=== PATIENT | female | born 1985 | race Caucasian/White ===

== ENCOUNTER 2016-11-03 23:02 | Emergency (ER) | payer OTHER ==
[~2016-11-03] VITALS: Ht 167.6 cm; Wt 104.3 kg
[~2016-11-03 23:02] MED LIST: COLACE100 MG PO; INDOMETHACIN50 M1 PO; MOTRIN 600 MG600 MG PO; PERCOCET 325 MG1 TA2 PO; TRANS SCOPE PAT1 PAT TOP
--- NOTE | 2016-11-03 23:57 | ED GENERAL ADULT ---
History of Present Illness General Chief Complaint: General Adult Stated Complaint: EPIGASTRIC DISCOMFORT, S/P SWOLLOWING MEAT. Source: patient Exam Limitations: no limitations Vital Signs & Intake/Output Vital Signs & Intake/Output Vital Signs Date Time Temp Pulse Resp B/P Pulse O2 O2 Flow FiO2 Ox Delivery Rate 11/04 0113 98.0 98 18 125/80 99 Room Air 11/04 0006 95 11/03 2338 98.7 103 16 137/87 99 Room Air ED Intake and Output 11/04 0000 11/03 1200 Intake Total Output Total Balance Patient 230 lb Weight Allergies Coded Allergies: NO KNOWN ALLERGIES (05/05/16) Reconcile Medications Docusate Sodium (Colace) 100 MG SGL 1 CAP PO BID PRN CONSTIPATION STOOL SOFTENER AVAILABLE OVER THE COUNTER. TAKE DIRECTED. Ibuprofen (Motrin 600 MG Tab) 600 MG TAB 1 TAB PO TID PRN PAIN CONTROL AVAILABLE OVER THE COUNTER. YOU MAY TAKE IN COMBINATION OR ALTERNATIVELY TO PERCOCET. Indomethacin 50 MG CAPSULE 1 CAP PO TID PRN PAIN with food OXYCODONE HCL/ACETAMINOPHEN (Percocet 5-325 MG Tablet) 325 MG/5 MG TAB 1-2 TAB PO Q4-6 PRN PRN PAIN DO NOT COMBINE WITH TYLENOL Scopolamine Hydrobromide (Transderm-Scop) 1 PAT PAT 1 PATCH TOP Q72 PRN POST- OP NAUSEA REMOVE PATCH TOMORROW, 07/26/15 FROM BEHIND YOUR RIGHT EAR. REMOVE CAREFULLY AND WASH HANDS AND AREA AFTER REMOVAL. Triage Note: 31YO FEMALE TO TRIAGE W/CO THROAT PAIN SP SWALLOWING A LG PIECE OF MEAT WED DANIELLE. STATES SHE ATE AND DRANK OK TODAY BUT HAS PAIN. Triage Nurses Notes Reviewed? yes Onset: Gradual Duration: day(s): Timing: no prior history Injury Environment: home Severity: mild Severity Numbers: 4 No Modifying Factors: none : No Patient currently breastfeeds: No HPI: Patient is a 31-year-old female with history of asthma presenting to the emergency department with chief complaint of wheezing after episode of choking on a large piece of food yesterday. Patient reports that she was eating a piece of boneless meAT and she felt like it was going down the wrong pipe. Denies abdominal pain. No nausea or vomiting. She's been able to drink all day today without difficulty. No fevers or chills. She's been using her albuterol inhaler with little relief. Denies coughing. No recent upper respiratory congestion. (SOURAV CLIFTON) Past History Travel History Traveled to [place] past 21 day No Medical History Any Pertinent Medical History? see below for history Neurological: NONE EENT: NONE Cardiovascular: NONE Respiratory: NONE Gastrointestinal: NONE Hepatic: NONE Renal: NONE Musculoskeletal: NONE Psychiatric: NONE Endocrine: NONE Blood Disorders: NONE Cancer(s): NONE PERFORMANCE CONSULTANT/Reproductive: NONE History of MRSA: No History of VRE: No History of CDIFF: No Surgical History Surgical History: N Psychosocial History Who do you live with Family Services at Home None What is your primary language Monegasque Tobacco Use: Never used Family History Hx Contributory? No (SOURAV CLIFTON) Review of Systems Review of Systems Constitutional: Reports: no symptoms. Comments Review of systems: See HPI, All other systems negative. Constitutional, no chills fever or weight loss HEENT: No visual changes no sore throat no congestion Cardiovascular: No chest pain ,palpitation Skin, no jaundice no rashes Respiratory: No dyspnea cough sputum or hemoptysis GI: No nausea no vomiting Muscle skeletal: no back pain, no neck pain, Neurologic: No numbness no confusion Psych: No stress anxiety Immunology: No splenectomy or history of AIDS (SOURAV CLIFTON) Physical Exam Physical Exam General Appearance: well developed/nourished, no apparent distress, alert, awake , comfortable Comments: Well-developed well-nourished person in no acute distress HEENT: Pupils equally round and reactive to light and accommodation. Nose is atraumatic.Pharynx normal. No swelling or edema. No foreign body appreciated Neck: Normal inspection Back: Nontender Cardiovascular: Regular rate and rhythms no murmurs rubs or gallops, normal JVP Respiratory: Chest nontender. No respiratory distress.diffuse wheezing to auscultation bilaterally Abdomen: Soft, nontender nondistended, no appreciable organomegaly. Normal bowel sounds. No ascites Extremity: No edema Neuro: Alert oriented x3 Skin: No appreciable rash on exposed skin, skin is warm and dry. Psych: Mood and affect is normal, memory and judgment is normal. Core Measures ACS in differential dx? No CVA/TIA Diagnosis: No Severe Sepsis Present: No Septic Shock Present: No (SOURAV CLIFTON) Progress Differential Diagnoses I considered the following diagnoses in my evaluation of the patient: Esophageal abrasion, esophageal stricture, aspiration pneumonia, asthma exacerbation Plan of Care: Orders Procedure Date/time Status XRY-CHEST XRAY, PA AND LATERAL 11/03 2869 Active Diagnostic Imaging: Viewed by Me: Radiology Read. Discussed w/RAD: Radiology Read. CXR Impression: no acute abnormality, no infiltrates, normal size heart, normal mediastinum Initial ED EKG: none Comments: Patient moving better after DuoNeb treatment. Patient will fracture develop pneumonia. Patient was informed of x-ray results. All questions answered. She'll follow up with PCP. Patient nontoxic. (SOURAV CLIFTON) Departure Departure Time of Disposition: 58 Disposition: HOME OR SELF CARE Condition: Stable Clinical Impression Primary Impression: Wheezing Referrals: SHEREE HUGGINS APRN (PCP/Family) Additional Instructions: Follow-up with a primary care physician, continue using albuterol inhaler as previously directed. Return for worsening symptoms or concerns. Departure Forms: Customer Survey General Discharge Information (SOURAV CLIFTON) PA/WAITER/WAITRESS DINING CAR Co-Sign Statement Statement: ED Attending supervision documentation- [] I saw and evaluated the patient. I have also reviewed all the pertinent lab results and diagnostic results. I agree with the findings and the plan of care as documented in the PA's/WAITER/WAITRESS DINING CAR's documentation. [X] I have reviewed the ED Record and agree with the PA's/WAITER/WAITRESS DINING CAR's documentation. [] Additions or exceptions (if any) to the PAs/WAITER/WAITRESS DINING CAR's note and plan are summarized below: [] (JANET MORENO,EVERARDO Hargrove) Critical Care Note Critical Care Note Critical Care Time: non-applicable (SOURAV CLIFTON)
--- NOTE | 2016-11-04 01:08 | RADIOLOGY REPORT ---
EXAMINATION: XR CHEST, 2 VIEWS CLINICAL INFORMATION: Choked on food. Rule out aspiration pneumonia. COMPARISON: 12/29/2013 TECHNIQUE: PA and lateral views of the chest were obtained. FINDINGS: Lungs are clear. No consolidation, pneumothorax, or pleural effusion. Cardiac and mediastinal contours are normal. Pulmonary vasculature is unremarkable. Trachea is midline. Osseous structures are unremarkable. IMPRESSION: Normal chest radiographs.
[2016-11-04 01:13] VITALS: BP 125/80
== END 2016-11-04 01:15 ==
LOC: ERH 23:02
DX: R06.2 Wheezing (principal)
CPT/HCPCS: 1263; 1395

== ENCOUNTER 2016-12-01 16:19 | Emergency (ER) | payer OTHER ==
[~2016-12-01] VITALS: Ht 167.6 cm; Wt 113.4 kg
[2016-12-01] MEDS ORDERED: SYMBICORT 16010.2 GM INH (16:44)
[2016-12-01] MEDS ORDERED: LORYNA 3 MG-0.1 EACH PO (16:45)
[2016-12-01] MEDS ORDERED: PROAIR HFA8.5 GM INH (16:45)
[2016-12-01] MEDS ORDERED: ALBUTEROL2.5 MG/3 M INH/SOL (16:46)
[2016-12-01] MEDS ORDERED: TRIAMCINOLONE A15 G4 TOP (16:47)
--- NOTE | 2016-12-01 18:11 | ED INFLUENZA/URI COMPLAINT ---
History of Present Illness General Chief Complaint: General Adult Stated Complaint: "I GOT SICK YESTERDAY AND FEVER/BODY ACHE..." Source: patient Exam Limitations: no limitations Vital Signs & Intake/Output Vital Signs & Intake/Output Vital Signs Date Time Temp Pulse Resp B/P Pulse O2 O2 Flow FiO2 Ox Delivery Rate 12/01 1928 97.9 103 18 136/82 98 Room Air Room Air 12/01 1621 97.1 120 18 137/88 98 Room Air Allergies Coded Allergies: NO KNOWN ALLERGIES (05/05/16) Reconcile Medications Albuterol Sulfate (Proair Hfa) 90 MCG HFA.AER.AD 2 PUF INH PRN ASTHMA ( Reported) Albuterol Sulfate 2.5 MG/3 ML (0.083 %) VIAL.NEB 1 Vial INH/ALEIDA PRN ASTHMA ( Reported) Budesonide/Formoterol Fumarate (Symbicort 160-4.5 Mcg Inhaler) 160 MCG-4.5 MCG/ ACTUATION HFA.AER.AD 2 PUF INH BID ASTHMA (Reported) Ethinyl Estradiol/Drospirenone (Loryna 3 MG-0.02 MG Tablet) 0.02 MG-3 MG (24) TABLET 1 TAB PO DAILY CONTROL (Reported) Oseltamivir Phosphate (Tamiflu) 75 MG CAPSULE 1 CAP PO BID flu Triamcinolone Acetonide 0.5 % OINT...G. 1 THAI TOP BID ECZEMA (Reported) apply to affected area(s) Triage Note: PT STATES THAT SHE JUST HASN'T BEEN FEELING RIGHT SINCE YESTERDAY, COUGH AND BODY ACHES, AFEBRILE Triage Nurses Notes Reviewed? yes : No Patient currently breastfeeds: No HPI: Yesterday afternoon there was a sudden onset of myalgias and nasal congestion cough and low-grade fever body aches and rhinorrhea. Symptoms continued today and are worse. She took Motrin earlier today with mild relief of fever. She has a cough that is nonproductive. She denies any wheezing or shortness of breath. She feels moderate symptoms. Mild sore throat upon swallowing. No nausea no vomiting or diarrhea. Positive sick contacts with influenza Past History Travel History Traveled to [place] past 21 day No Medical History Any Pertinent Medical History? see below for history Neurological: NONE EENT: NONE Cardiovascular: NONE Respiratory: asthma Gastrointestinal: NONE Hepatic: NONE Renal: NONE Musculoskeletal: NONE Psychiatric: NONE Endocrine: NONE Blood Disorders: NONE Cancer(s): NONE YARD JOCKEY/Reproductive: NONE History of MRSA: No History of VRE: No History of CDIFF: No Surgical History Surgical History: N Psychosocial History Who do you live with Family Services at Home None What is your primary language Welsh Tobacco Use: Never used ETOH Use: denies use Illicit Drug Use: denies illicit drug use Family History Hx Contributory? No Review of Systems Review of Systems Constitutional: Reports: see HPI. EENTM: Reports: see HPI. Respiratory: Reports: see HPI. Cardiovascular: Reports: no symptoms. GI: Reports: no symptoms. Genitourinary: Reports: no symptoms. Musculoskeletal: Reports: no symptoms. Skin: Reports: no symptoms. Neurological/Psychological: Reports: no symptoms. Hematologic/Endocrine: Reports: no symptoms. Immunologic/Allergic: Reports: no symptoms. All Other Systems: Reviewed and Negative Physical Exam Physical Exam Ears, Nose, Throat: normal ENT inspection, moist mucous membrane, hearing grossly normal, Tympanic normal, pharynx normal, nasal congestion Comments: Well-developed well-nourished no apparent distress. HEENT: Atraumatic, extraocular motion intact Neck: Supple, no lymphadenopathy Back: Nontender Respiratory: No respiratory distress clear to auscultation bilateral. Heart: Tachycardic, regular rhythm Extremities: No edema, full range of motion Neuro: Alert and oriented x3 Psych: Mood affect normal, normal memory normal judgment. Skin: Warm and dry, no rash on exposed skin Core Measures Severe Sepsis Present: No Septic Shock Present: No Progress Differential Diagnosis: influenza, meningitis, neutropenia, otitis, pneumonia, pharyngitis, sinusitis Plan of Care: Orders Procedure Date/time Status RAPID VIRAL INFLUENZA A 12/01 1753 Complete Initial ED EKG: none Comments: Rapid influenza test positive. Treated with Tamiflu, given dose here, continue his outpatient recommend supportive care, also given Tylenol here for tactile fever. Departure Departure Disposition: HOME OR SELF CARE Condition: Stable Clinical Impression Primary Impression: Influenza Referrals: SHEREE HUGGINS APRN (PCP/Family) Additional Instructions: Take Tamiflu twice daily for influenza Motrin and Tylenol as needed for pain and fever Drink plenty of fluids Departure Forms: Customer Survey General Discharge Information Prescriptions: Current Visit Scripts Oseltamivir Phosphate (Tamiflu) 1 CAP PO BID #9 CAP
[2016-12-01] MEDS ORDERED: TAMIFLU75 M1 PO (19:08)
[2016-12-01 19:29] VITALS: BP 136/82
== END 2016-12-01 19:29 ==
LOC: ERH 16:19
DX: J11.1 Influenza due to unidentified influenza virus with other respiratory manifestations (principal)
CPT/HCPCS: 87804; 87804-59

== ENCOUNTER 2018-04-02 21:54 | Emergency (ER) | payer OTHER ==
[~2018-04-02] VITALS: Ht 167.6 cm; Wt 104.3 kg
[~2018-04-02 21:54] MED LIST changes: +ALBUTEROL2.5 MG/3 M INH/SOL; +LORYNA 3 MG-0.1 EACH PO; +PROAIR HFA8.5 GM INH; +SYMBICORT 16010.2 GM INH; +TAMIFLU75 M1 PO; +TRIAMCINOLONE A15 G4 TOP
[2018-04-02 21:58] VITALS: BP 130/89
== END 2018-04-03 00:23 | disposition admitted as inpatient to this hospital (09) ==
LOC: ERH 21:54
DX: M79.89 Other specified soft tissue disorders (principal)